=== PATIENT | female | born 1980 | race Caucasian/White ===

== ENCOUNTER 2017-12-09 04:16 | Emergency (ER) | payer MEDICARE | END 2017-12-09 07:02 | disposition home or self-care (01) | LOC: EDH 04:16 | DX: S82.124A Nondisplaced fracture of lateral condyle of right tibia, initial encounter for closed fracture (principal); S90.412A Abrasion, left great toe, initial encounter; S80.212A Abrasion, left knee, initial encounter; Z72.0 Tobacco use; Z88.8 Allergy status to other drugs, medicaments and biological substances; W01.0XXA Fall on same level from slipping, tripping and stumbling without subsequent striking against object, initial encounter; Y93.89 Activity, other specified; Y92.89 Other specified places as the place of occurrence of the external cause; Y99.8 Other external cause status | CPT/HCPCS: 29515; 73600 ==

== ENCOUNTER 2017-12-21 08:35 | Emergency (ER) | payer MEDICARE | END 2017-12-21 09:52 | disposition home or self-care (01) | LOC: EDH 08:35 | DX: S93.411A Sprain of calcaneofibular ligament of right ankle, initial encounter (principal); E11.9 Type 2 diabetes mellitus without complications; Z88.8 Allergy status to other drugs, medicaments and biological substances; Z72.0 Tobacco use; X58.XXXA Exposure to other specified factors, initial encounter; Y93.89 Activity, other specified; Y92.89 Other specified places as the place of occurrence of the external cause; Y99.8 Other external cause status | CPT/HCPCS: 73590 ==